=== PATIENT | male | born 1990 | race Caucasian/White ===

== ENCOUNTER 2016-11-16 11:24 | Emergency (ER) | payer MEDICAID ==
[~2016-11-16] VITALS: Ht 180.3 cm; Wt 79.0 kg
[2016-11-16] MEDS ORDERED: IBUPROFEN 800 MG TABLET PO ONE (12:30)
[2016-11-16 14:43] VITALS: BP 125/71
== END 2016-11-16 14:44 | disposition home or self-care (01) ==
LOC: EMS 11:26
DX: S93.402A Sprain of unspecified ligament of left ankle, initial encounter (principal); X58.XXXA Exposure to other specified factors, initial encounter; Y93.01 Activity, walking, marching and hiking; Y92.89 Other specified places as the place of occurrence of the external cause; Y99.8 Other external cause status
CPT/HCPCS: 29515; 99284